=== PATIENT | female | born 1955 | race American Indian/Alaskan Native ===

== ENCOUNTER 2018-09-30 20:58 | Emergency (ER) | payer MEDICAID ==
--- NOTE | 2018-09-30 21:39 | ED PDOC ---
Lower Extremity Pain/Injury Time Seen by Provider: 09/30/18 21:15 Chief Complaint (Nursing): Abnormal Skin Integrity Chief Complaint (Provider): leg pain History Per: Patient History/Exam Limitations: no limitations Onset/Duration Of Symptoms: Days (years) Current Symptoms Are (Timing): Still Present Additional Complaint(s): 63 y/o female presents for evaluation of leg pain/swelling x years. Patient states she used to be treated at the wound care center in [facility] but has not gone "in a while". Patient reports dry, flaking skin. Denies fever, nausea/vomiting, chest pain, shortness of breath, palpitation, numbness/weakness lower extremities. Past Medical History Reviewed: Historical Data, Nursing Documentation, Vital Signs Vital Signs: Last Vital Signs Temp 98.3 F 09/30/18 21:01 Pulse 81 09/30/18 21:01 Resp 16 09/30/18 21:01 BP 180/85 H 09/30/18 21:01 Pulse Ox 98 09/30/18 21:01 - Medical History PMH: No Chronic Diseases - Surgical History Surgical History: No Surg Hx - Family History Family History: States: No Known Family Hx - Living Arrangements Living Arrangements: Alone - Social History Current smoker - smoking cessation education provided: No Alcohol: None Drugs: Denies - Allergies Allergies/Adverse Reactions: Allergies Allergy/AdvReac Type Severity Reaction Status Date / Time No Known Allergies Allergy Verified 09/30/18 21:01 Review of Systems ROS Statement: Except As Marked, All Systems Reviewed And Found Negative Musculoskeletal: Positive for: Leg Pain Physical Exam - Reviewed Nursing Documentation Reviewed: Yes Vital Signs Reviewed: Yes - Physical Exam Appears: Positive for: Well, Non-toxic, No Acute Distress Head Exam: Positive for: ATRAUMATIC, NORMAL INSPECTION, NORMOCEPHALIC Skin: Positive for: Normal Color Eye Exam: Positive for: Normal appearance ENT: Positive for: Normal ENT Inspection Cardiovascular/Chest: Positive for: Regular Rate, Rhythm Respiratory: Positive for: Normal Breath Sounds Pulses-Post. Tibialis (L): 2+ Pulses-Post. Tibialis (R): 2+ Gastrointestinal/Abdominal: Positive for: Normal Exam Back: Positive for: Normal Inspection Extremity: Positive for: Normal ROM, Swelling (2+ pitting edema bilaterally with chronic skin thickening/dryness L>R. Left lower extremity with with skin maceration superior to ankle. No visible ulcerations, purulent drainage noted). Negative for: Pedal Edema, Calf Tenderness Neurologic/Psych: Positive for: Alert, Oriented (x3) - Laboratory Results Result Diagrams: 09/30/18 22:24 09/30/18 22:24 - ECG O2 Sat by Pulse Oximetry: 98 - Progress ED Course And Treament: -cbc -cmp -lactic acid -bilateral lower extremity duplex EXAM: US for Deep Venous Thrombosis, bilateral Lower Extremity. CLINICAL HISTORY: Swelling TECHNIQUE: Real-time ultrasound scan of the veins of the bilateral lower extremity with color Doppler flow, spectral waveform analysis and compression. COMPARISON: None provided. FINDINGS: DEEP VEINS: The common femoral, superficial femoral, and popliteal veins are echolucent and compressible. There is normal color Doppler flow throughout. The visualized calf veins appear patent. SUPERFICIAL VEINS: No thrombosis visualized. SOFT TISSUES: No popliteal fossa cyst or other abnormalities. IMPRESSION: No deep venous thrombosis evident on bilateral lower extremity examination Patient educated on findings, discharged with instructions to follow up outpatient podiatry Advised compression stockings, elevate legs at rest Return precautions given Disposition - Clinical Impression Clinical Impression: Lower extremity edema - Patient ED Disposition Is Patient to be Admitted: No Counseled Patient/Family Regarding: Studies Performed, Diagnosis, Need For Followup - Disposition Referrals: Podiatry Clinic [Outside] Disposition: Routine/Home Disposition Time: 23:49 Condition: IMPROVED Instructions: Dependent Edema (DC)
[2018-09-30 22:28] LABS: BASO % 0.7 % (0.0-2.0); EOS # 0.1 K/uL (0.0-0.7); EOS % 1.9 % (0.0-4.0); HEMOGLOBIN 10.6 g/dL (12.0-16.0); LYMPH # 1.3 K/uL (1.0-4.3); LYMPH % 20.1 % (20.0-40.0); MEAN CELL VOLUME 83.9 fl (81.0-99.0); MEAN CORPUSCULAR HEMOGLOBIN 27.3 pg (27.0-31.0); MEAN CORPUSCULAR HGB CONC 32.5 g/dL (33.0-37.0); MEAN PLATELET VOLUME 8.4 fl (7.2-11.7); MONO # 0.4 K/uL (0.0-0.8); NEUT # 4.8 K/uL (1.8-7.0); NEUT % 71.3 % (50.0-75.0); RBC 3.89 Mil/uL (3.80-5.20); RED CELL DISTRIBUTION WIDTH 16.6 % (11.5-14.5); WHITE BLOOD COUNT 6.7 K/uL (4.8-10.8)
[2018-09-30 22:38] LABS: ALB/GLOB RATIO 0.8 (1.0-2.1); ALBUMIN 3.5 g/dL (3.5-5.0); AST/SGOT 19 U/L (14-36); BLOOD UREA NITROGEN 13 mg/dl (7-17); CALCIUM 9.3 mg/dL (8.4-10.2)
[2018-09-30 22:46] LABS: B-TYPE NATRIURETIC PEPTIDE 30.4 pg/ml (0-900)
[2018-09-30 22:52] LABS: ALT/SGPT < 6 U/L (9-52)
[2018-09-30 23:11] LABS: GFR NON-AFRICAN AMERICAN > 60
[2018-10-01 04:53] VITALS: BP 121/74; PULSE 110; TEMP 99.3; O2SAT 97
[2018-10-01 04:58] VITALS: RESP 18
--- NOTE | 2018-10-01 10:51 | US ---
Date of service: 09/30/2018 PROCEDURE: Bilateral lower extremity venous duplex Doppler. HISTORY: swelling COMPARISON: None available. TECHNIQUE: Bilateral common femoral, superficial femoral, popliteal and posterior tibial veins were evaluated. Flow was assessed with color Doppler, compressibility, assessment of phasic flow and augmentation response. FINDINGS: COMMON FEMORAL VEIN: Right CFV: Unremarkable. Left CFV: Unremarkable. SUPERFICIAL FEMORAL VEIN: Right SFV: Unremarkable. Left SFV: Unremarkable. POPLITEAL VEIN: Right Popliteal: Unremarkable. Left Popliteal: Unremarkable. POSTERIOR TIBIAL VEIN: Right PTV: Unremarkable. Left PTV: Unremarkable. OTHER FINDINGS: None. IMPRESSION: No evidence of deep venous thrombosis. Concordant findings (preliminary report) provided by [facility].
== END 2018-10-01 05:21 | disposition home or self-care (01) ==
LOC: H.ER 20:58
DX: R60.0 Localized edema (principal)

== ENCOUNTER 2018-11-10 13:55 | Emergency (ER) | payer MEDICAID ==
[2018-11-10 13:57] VITALS: BMI 35.1
[2018-11-10 13:58] VITALS: RESP 20; TEMP 98.7; O2SAT 100
[2018-11-10 16:58] LABS: BASO # 0.1 K/uL (0.0-0.2); BASO % 0.5 % (0.0-2.0); EOS # 0.1 K/uL (0.0-0.7); HEMOGLOBIN 11.3 g/dL (12.0-16.0); LYMPH # 1.6 K/uL (1.0-4.3); LYMPH % 16.2 % (20.0-40.0); MEAN CELL VOLUME 84.3 fl (81.0-99.0); MEAN CORPUSCULAR HEMOGLOBIN 27.6 pg (27.0-31.0); MEAN CORPUSCULAR HGB CONC 32.7 g/dL (33.0-37.0); MEAN PLATELET VOLUME 8.4 fl (7.2-11.7); MONO # 0.5 K/uL (0.0-0.8); MONO % 4.8 % (0.0-10.0); NEUT # 7.8 K/uL (1.8-7.0); NEUT % 77.5 % (50.0-75.0); RBC 4.11 Mil/uL (3.80-5.20); RED CELL DISTRIBUTION WIDTH 17.4 % (11.5-14.5)
--- NOTE | 2018-11-10 17:05 | ED PDOC ---
Lower Extremity Pain/Injury Time Seen by Provider: 11/10/18 15:27 Chief Complaint (Nursing): Lower Extremity Problem/Injury Chief Complaint (Provider): Lower extremity pain History Per: Patient History/Exam Limitations: no limitations Additional Complaint(s): 63yo female, comes to ER for evaluation of pain, swelling and foul odor to bilateral lower extremities. Patient has had multiple prior admissions due to bilateral lower extremity ulcers, and is supposed to follow up at [facility] for wound care but has been unable to as she is homeless. Patient states the pain and odor is worse today, prompting the ER visit. Otherwise, no fever, chills, chest pain, or shortness of breath. No additional complaints. PMD: None Past Medical History Reviewed: Historical Data, Nursing Documentation, Vital Signs Vital Signs: Last Vital Signs Temp 98.7 F 11/10/18 13:58 Pulse 101 H 11/10/18 13:58 Resp 20 11/10/18 13:58 BP 156/95 H 11/10/18 13:58 Pulse Ox 100 11/10/18 13:58 - Family History Family History: States: No Known Family Hx - Home Medications Home Medications: Ambulatory Orders Medication Instructions Recorded Amoxicillin/Clavulanate [Augmentin 1 tab PO BID #28 tab 11/10/18 875 MG-125 MG] - Allergies Allergies/Adverse Reactions: Allergies Allergy/AdvReac Type Severity Reaction Status Date / Time No Known Allergies Allergy Verified 09/30/18 21:01 Review of Systems ROS Statement: Except As Marked, All Systems Reviewed And Found Negative Constitutional: Negative for: Fever Cardiovascular: Negative for: Chest Pain Respiratory: Negative for: Shortness of Breath Musculoskeletal: Positive for: Leg Pain Skin: Positive for: Other (ulcers to bilateral legs) Neurological: Negative for: Weakness, Numbness Physical Exam - Reviewed Nursing Documentation Reviewed: Yes Vital Signs Reviewed: Yes - Physical Exam Appears: Positive for: Non-toxic Head Exam: Positive for: ATRAUMATIC, NORMAL INSPECTION, NORMOCEPHALIC Skin: Positive for: Warm Eye Exam: Positive for: EOMI, PERRL Neck: Positive for: Supple Cardiovascular/Chest: Positive for: Regular Rate, Rhythm. Negative for: Tachycardia Respiratory: Positive for: Normal Breath Sounds. Negative for: Wheezing, Respiratory Distress Gastrointestinal/Abdominal: Positive for: Normal Exam, Soft Back: Positive for: Normal Inspection Extremity: Positive for: Other (bilateral lgs from ankle to mid leg with fungating, swollen tissue. left lower leg with open weeping ulcers. wounds covered with multiple layers of tissue paper and unable to visualize base of wound; patient reporting pain with attempting to remove tissue paper. ) Neurological/Psych: Positive for: Awake, Alert, Oriented (x 3) - Laboratory Results Result Diagrams: 11/10/18 16:50 11/10/18 16:50 - ECG O2 Sat by Pulse Oximetry: 100 (RA) Pulse Ox Interpretation: Normal Medical Decision Making Medical Decision Making: Bilateral leg ulcers plan: -- Labs -- XR bilateral foot -- XR bilateral ankle -- Podiatry consult Scribe Attestation: Documented by Cristy Doan acting as a scribe for Ivy Womack MD. Provider Attestation: All medical record entries made by the Scribe were at my direction and personally dictated by me. I have reviewed the chart and agree that the record accurately reflects my personal performance of the history, physical exam, medical decision making, and the department course for this patient. I have also personally directed, reviewed, and agree with the discharge instructions and disposition. Time: 1755 -- Patient seen by podiatry who cleaned and redressed the wounds. Labs demonstrate no elevated WBC. Patient to be discharged with Augmentin and instructions to follow up with the podiatry clinic. Scribe Attestation: Documented by Parker Duval, acting as a scribe Manasa Womack MD. Provider Scribe Attestation: All medical record entries made by the Scribe were at my direction and per sonally dictated by me. I have reviewed the chart and agree that the record accurately reflects my personal performance of the history, physical exam, medical decision making, and the department course for this patient. I have also personally directed, reviewed, and agree with the discharge instructions and disposition. Disposition - Clinical Impression Clinical Impression: Cellulitis, Lymphedema of both lower extremities - Disposition Referrals: Podiatry Clinic [Outside] Disposition Time: 17:56 Condition: IMPROVED Additional Instructions: Take antibiotics as prescribed. Follow up with podiatry clinic as scheduled. Return to the emergency department if symptoms worsen or if new symptoms jeaneth martinez Prescriptions: Amoxicillin/Clavulanate [Augmentin 875 MG-125 MG] 1 tab PO BID #28 tab Instructions: Cellulitis (Skin Infection), Adult (DC), Lowering Your Chance for Lymphedema Forms: [facility] (Vietnamese) Print Language: SCOTTISH
[2018-11-10 17:08] LABS: BLOOD UREA NITROGEN 14 mg/dl (7-17); CALCIUM 9.7 mg/dL (8.4-10.2); GFR NON-AFRICAN AMERICAN > 60
[2018-11-10 17:09] LABS: INR 1.2
[2018-11-10 17:11] LABS: PARTIAL THROMBOPLASTIN TIME 42.2 Seconds (25.6-37.1)
--- NOTE | 2018-11-10 17:55 | RAD ---
Date of service: 11/10/2018 PROCEDURE: Bilateral ankles HISTORY: rule out osteo COMPARISON: None TECHNIQUE: Standard protocol for this study/examination. FINDINGS: Profound soft tissue swelling, edema left lower extremity greater than right. All deep ulcerations identified anteriorly at the level of the distal left tibia and fibula. Less pronounced changes identified mirror image area right lower extremity. IMPRESSION: Negative study for acute osteomyelitis. Profound soft tissue swelling, ulcerations and other manifestations lower extremity cellulitis which appears to be severe.
--- NOTE | 2018-11-10 17:56 | RAD ---
Date of service: 11/10/2018 PROCEDURE: Bilateral Feet Radiographs. HISTORY: rule out osteo COMPARISON: None. FINDINGS: BONES: Right Foot: No evidence of acute osteomyelitis. Moderate size plantar calcaneal spur. Left Foot: No evidence of acute osteomyelitis. Moderate-sized plantar calcaneal spur. JOINTS: Right Foot: Normal. No osteoarthritis. Left Foot: Normal. No osteoarthritis. SOFT TISSUES: Right Foot: Soft tissue findings in the left lower extremity are better visualized on ankle radiographs. Left Foot: Soft tissue findings lower extremity better visualized on ankle radiographs. OTHER FINDINGS: Soft tissue swelling without acute articular or osseous abnormality. IMPRESSION: No radiographic manifestations of acute osteomyelitis.
--- NOTE | 2018-11-10 19:25 | CP.PCM.CON ---
History of Present Illness - History of Present Illness History of Present Illness: Podiatry consult note for attending Dr. Matias: 63 year old female with no past medical history in the ED for b/l LE chronic stasis edema with left leg painful ulceration. Patient states that she started to develop the swelling in her legs 11 year ago. She states that it got worse. She states that she used to follow up with the podiaty clinic at [facility] but she didn't go since August. Patient states that the ulcer in her left leg is painful. She states that the pain is burning pain. Patient denies any other pedal complaint. She denies any recent fevers, nausea, vomiting, cough,and shortness of breath. PMHx: None PSHx: Breast biopsy Allergies: NKDA Social Hx: Denied tobacco, alcohol or illicit drug use. Review of Systems - Review of Systems Review of Systems: As per HPI - Constitutional Constitutional: As Per HPI Past Patient History - Past Social History Smoking Status: Unknown If Ever Smoked - INTEGUMENTARY Hx Cellulitis: Yes - PSYCHIATRIC Hx Substance Use: No Meds Home Medications: Home Medication List Medication Instructions Recorded Confirmed Type Amoxicillin/Clavulanate [Augmentin 1 tab PO BID #28 tab 11/10/18 Rx 875 MG-125 MG] Allergies/Adverse Reactions: Allergies Allergy/AdvReac Type Severity Reaction Status Date / Time No Known Allergies Allergy Verified 09/30/18 21:01 Physical Exam - Constitutional Appears: Non-toxic - Head Exam Head Exam: ATRAUMATIC - Extremities Exam Additional comments: B/L lower extremity focused exam: Vascular: DP/PT are 1/4 b/l due to edema, Cap refill < 3 seconds to all digits, Temp gradient warm to warm from proximal to distal, Massive lymphedema appreciated to b/l extremities left>right. Neuro: Gross sensation intact, protective sensation diminished. Derm: Left: Massive lymphedema noted in the leg with skin changes in the form fissures, cracks and lichnification, Lower 1/3 of the leg shows circumferential ulceration. Wound bed is mixed fibrous granular, positive malodor noted, No purulence, no fluctuance, no probe to bone, no tunneling, no undermining, no tracking noted. Right: Massive lymphedema noted in the leg with skin changes in the form fissures, cracks and lichnification. MSK: Muscle power 5/5 to all groups, Pain noted on palpating the anamaria- ulcerative area on the left side. - Neurological Exam Neurological exam: Alert, Oriented x3 Results - Vital Signs Recent Vital Signs: Last Vital Signs Temp 98.7 F 11/10/18 13:58 Pulse 101 H 11/10/18 13:58 Resp 20 11/10/18 13:58 BP 156/95 H 11/10/18 13:58 Pulse Ox 100 11/10/18 17:58 - Labs Result Diagrams: 11/10/18 16:50 11/10/18 16:50 Labs: Laboratory Results - last 24 hr 11/10/18 11/10/18 11/10/18 16:50 16:50 16:50 WBC 10.0 RBC 4.11 Hgb 11.3 L Hct 34.7 MCV 84.3 MCH 27.6 MCHC 32.7 L RDW 17.4 H Plt Count 311 MPV 8.4 Neut % (Auto) 77.5 H Lymph % (Auto) 16.2 L [place] % (Auto) 4.8 Eos % (Auto) 1.0 Baso % (Auto) 0.5 Neut # (Auto) 7.8 H Lymph # (Auto) 1.6 [place] # (Auto) 0.5 Eos # (Auto) 0.1 Baso # (Auto) 0.1 PT 14.0 H INR 1.2 APTT 42.2 H Sodium 143 Potassium 3.8 Chloride 106 Carbon Dioxide 27 Anion Gap 14 BUN 14 Creatinine 0.8 Est GFR ( Amer) > 60 Est GFR (Non-Af Amer) > 60 Random Glucose 106 H Calcium 9.7 Blood Type Antibody Screen BBK History Checked 11/10/18 16:50 WBC RBC Hgb Hct MCV MCH MCHC RDW Plt Count MPV Neut % (Auto) Lymph % (Auto) [place] % (Auto) Eos % (Auto) Baso % (Auto) Neut # (Auto) Lymph # (Auto) [place] # (Auto) Eos # (Auto) Baso # (Auto) PT INR APTT Sodium Potassium Chloride Carbon Dioxide Anion Gap BUN Creatinine Est GFR ( Amer) Est GFR (Non-Af Amer) Random Glucose Calcium Blood Type A POSITIVE Antibody Screen Negative BBK History Checked No verified bt Assessment & Plan - Assessment and Plan (Free Text) Assessment: 63 year old female with no past medical history in the ED for b/l LE chronic stasis edema with left leg painful ulceration. Plan: Patient seen and evaluated at the ED. Discussed in detail with Dr. Matias Charts, labs and vitals reviewed; Afebrile, WBC 10.0. Wound culture collected and sent to lab. B/L foot 3 views X-ray; No acute findings B/L ankle 2 views X-ray: No accute osseous finding, Massive soft tissue shadow. B/L legs cleaned with Chlorhexidine flush and saline then dressed with xeroform and DSD to the left LE and DSD to the right LE. Patient received stat dose of IV abx in the ED Patient to be discharged from the ED on PO Augmentin prescribed by the ED doctor. Thank you for the consult. PAtient to follow up at [place] wound care center upon discharge from the ED. - Date & Time Date: 11/10/18 Time: 19:12
[2018-11-10 19:40] VITALS: BP 137/93; PULSE 96
== END 2018-11-10 19:30 | disposition home or self-care (01) ==
LOC: H.ER 13:55
DX: I89.0 Lymphedema, not elsewhere classified (principal); L03.116 Cellulitis of left lower limb; L03.115 Cellulitis of right lower limb
CPT/HCPCS: 73610; 73630; 80048; 85025; 85610; 85730; 86850; 86900; 87040; 96374; 99284; J2270

== ENCOUNTER 2018-11-13 16:05 | Emergency (ER) | payer MEDICAID ==
[2018-11-13 16:05] VITALS: BMI 35.1
[2018-11-13 20:16] LABS: BASO # 0.1 K/uL (0.0-0.2); BASO % 0.8 % (0.0-2.0); EOS # 0.1 K/uL (0.0-0.7); EOS % 1.1 % (0.0-4.0); HEMOGLOBIN 11.4 g/dL (12.0-16.0); LYMPH # 1.4 K/uL (1.0-4.3); LYMPH % 18.1 % (20.0-40.0); MEAN CELL VOLUME 83.7 fl (81.0-99.0); MEAN CORPUSCULAR HEMOGLOBIN 27.3 pg (27.0-31.0); MEAN CORPUSCULAR HGB CONC 32.6 g/dL (33.0-37.0); MEAN PLATELET VOLUME 8.1 fl (7.2-11.7); MONO # 0.3 K/uL (0.0-0.8); MONO % 4.6 % (0.0-10.0); NEUT # 5.7 K/uL (1.8-7.0); NEUT % 75.4 % (50.0-75.0); RBC 4.18 Mil/uL (3.80-5.20); RED CELL DISTRIBUTION WIDTH 17.1 % (11.5-14.5); WHITE BLOOD COUNT 7.5 K/uL (4.8-10.8)
[2018-11-13 20:24] LABS: BLOOD UREA NITROGEN 16 mg/dl (7-17); CALCIUM 9.6 mg/dL (8.4-10.2); GFR NON-AFRICAN AMERICAN > 60
--- NOTE | 2018-11-13 20:45 | ED PDOC ---
Lower Extremity Pain/Injury Time Seen by Provider: 11/13/18 16:33 Chief Complaint (Nursing): Lower Extremity Problem/Injury Chief Complaint (Provider): Lower Extremity Problem/Injury History Per: Patient History/Exam Limitations: no limitations Onset/Duration Of Symptoms: Days Current Symptoms Are (Timing): Still Present Additional Complaint(s): 63 year old female with a past medical history of chronic venous stasis and chronic lower extremity ulcers who is homeless and is presenting to the ED for evaluation of worsening lower extremity wound drainage and pain. She was last seen in this ED for similar complaints on 11/10 and was evaluated by podiatry. They redressed wounds and gave her a dose of IV antibiotics and also provided her with a prescription for PO Augmentin. Patient was scheduled to follow up in [place] podiatry clinic but she states that she has no money and cant afford it or PO meds. She admits that people in her nursing home have been complaining of odor coming from her legs and she reports that drainage has increased since she was last evaluated. Patient does admit that the pain is better and denies any fevers or chills. PMD: none provided Past Medical History Reviewed: Historical Data, Nursing Documentation, Vital Signs Vital Signs: Last Vital Signs Temp 98.2 F 11/13/18 16:08 Pulse 88 11/13/18 16:08 Resp 18 11/13/18 16:08 BP 149/78 11/13/18 16:08 Pulse Ox 100 11/13/18 16:08 - Medical History Other PMH: venous stasis - Surgical History Surgical History: No Surg Hx - Family History Family History: States: Unknown Family Hx - Social History Current smoker - smoking cessation education provided: No Alcohol: None Drugs: Denies - Home Medications Home Medications: Ambulatory Orders Medication Instructions Recorded Amoxicillin/Clavulanate [Augmentin 1 tab PO BID #28 tab 11/10/18 875 MG-125 MG] Amoxicillin/Clavulanate [Augmentin 1 tab PO BID #28 tab 11/13/18 875 MG-125 MG] - Allergies Allergies/Adverse Reactions: Allergies Allergy/AdvReac Type Severity Reaction Status Date / Time No Known Allergies Allergy Verified 09/30/18 21:01 Review of Systems ROS Statement: Except As Marked, All Systems Reviewed And Found Negative Constitutional: Negative for: Fever, Chills Musculoskeletal: Positive for: Other (extrmity ulcers with drainage ) Physical Exam - Reviewed Nursing Documentation Reviewed: Yes Vital Signs Reviewed: Yes - Physical Exam Appears: Positive for: Non-toxic, No Acute Distress Head Exam: Positive for: ATRAUMATIC, NORMAL INSPECTION, NORMOCEPHALIC Extremity: Positive for: Other (bilateral lower extremities: lymphemia, chronic venous stasis changes, weeping wounds to posterior left lower leg with ? pur ulent drainage. mild associated erythema ) Neurological/Psych: Positive for: Awake, Alert, Oriented. Negative for: Motor/Sensory Deficits - Laboratory Results Result Diagrams: 11/13/18 20:00 11/13/18 20:00 - ECG O2 Sat by Pulse Oximetry: 100 (RA) Pulse Ox Interpretation: Normal Medical Decision Making Medical Decision Making: Time: 20:00 Plan: --BMP --Podiatry Consult --CBC --Blood Culture --Wound Culture Seen by podiatry. Wounds are unchanged from previous visit 2 days ago. Labs are wnl. Patient to be discharged with same antibiotic prescription and follow up in [facility] clinic as well as wound clinic. Per patient, arrangements can be made by nursing home for transportation to wound clinic. See Podiatry note for full recommendations. Scribe Attestation: Documented by Cary De Oliveira, acting as a scribe for Cristina Larry PA-C. Provider Scribe Attestation: All medical record entries made by the Scribe were at my direction and personally dictated by me. I have reviewed the chart and agree that the record accurately reflects my personal performance of the history, physical exam, medical decision making, and the department course for this patient. I have also personally directed, reviewed, and agree with the discharge instructions and disposition. Disposition - Clinical Impression Clinical Impression: Lymphedema of both lower extremities - Patient ED Disposition Is Patient to be Admitted: No Counseled Patient/Family Regarding: Diagnosis, Need For Followup, Rx Given - Disposition Referrals: [facility] [Outside] [facility] [place] [Outside] Disposition: Routine/Home Disposition Time: 21:50 Condition: STABLE Additional Instructions: Follow up with your primary care doctor for assistance with obtaining antibiotic prescription. Take antibiotic as prescribed. Follow up in wound care clinic for dressing changes. Change dressing daily (use paper towels if needed as per Podiatry resident). Return to ER if you develop fevers. Prescriptions: Amoxicillin/Clavulanate [Augmentin 875 MG-125 MG] 1 tab PO BID #28 tab Instructions: Lymphedema (DC) Forms: [employer] (Sami) Print Language: MONGOLIAN
[2018-11-13 22:16] VITALS: BP 144/82; PULSE 84; RESP 16; TEMP 98
--- NOTE | 2018-11-13 22:59 | CP.PCM.CON ---
History of Present Illness - History of Present Illness History of Present Illness: Podiatry Consult- Dr. Matias: 63 year old female with no PMH seen and evaluated in the ED for bilateral LE chronic stasis edema with left leg painful ulceration. Patient reports lower extremity problems has been going on for about 11 years. Was seen regulary by a wound center at [facility] when she was living around that area. Reports moved out and is currently in [place] and unable to follow up regularly. Patient reports that she was in the ED for the same problem a few days ago and was cleansed and dressing was placed. She was told to follow up in [facility] in wound care. Patient reports that she has kept the same dressing on since her visitation to the ED. Reports that in the residential, the people living there could not stand the smells on her legs and told her to go back to the ED. Patient reports no changes since the last time she came to the ED. Reports lower extremity condition has been the same. Does not notice increase swelling or drainage. Patient reports was not able to get the medications prescribed since the ED. Patient denies nausea, fever, shortness of breath, chest pains or chills. PMHx: None PSHx: Breast biopsy Allergies: NKDA Social Hx: Homeless, lives in residential, denies tobacco, alcohol or illicit drug use. Past Patient History - Past Social History Alcohol: None Drugs: Denies - INTEGUMENTARY Hx Cellulitis: Yes Other/Comment: chronic venous stasis bilateral lower extremities - PSYCHIATRIC Hx Substance Use: No Meds Home Medications: Home Medication List Medication Instructions Recorded Confirmed Type Amoxicillin/Clavulanate [Augmentin 1 tab PO BID #28 tab 11/13/18 Rx 875 MG-125 MG] Allergies/Adverse Reactions: Allergies Allergy/AdvReac Type Severity Reaction Status Date / Time No Known Allergies Allergy Verified 09/30/18 21:01 Physical Exam - Constitutional Appears: Well, Non-toxic, No Acute Distress - Extremities Exam Extremities exam: Negative for: calf tenderness Additional comments: B/L lower extremity focused exam: Vascular: DP/PT are 1/4 b/l due to edema, Cap refill < 3 seconds to all digits, Temp gradient warm to warm from proximal to distal, massive lymphedema appreciated to b/l extremities left>right. Neuro: Gross sensation intact, protective sensation diminished. Derm: Left: Massive lymphedema noted in the leg with skin changes in the form fissures, cracks and lichnification, Lower 1/3 of the leg shows circumferential ulceration. Wound bed is mixed fibrous granular, positive malodor noted, no purulence, no fluctuance, no probe to bone, no tunneling, no undermining, no tracking noted. Right: Massive lymphedema noted in the leg with skin changes in the form fissures, cracks and lichnification. MSK: Muscle power 5/5 to all groups, Pain noted on palpating the anamaria- ulcerative area on the left side. - Neurological Exam Neurological exam: Alert, Normal Gait - Psychiatric Exam Psychiatric exam: Normal Affect, Normal Mood Results - Vital Signs Recent Vital Signs: Last Vital Signs Temp 98.0 F 11/13/18 21:50 Pulse 84 11/13/18 21:50 Resp 16 11/13/18 21:50 BP 144/82 11/13/18 21:50 Pulse Ox 99 11/13/18 21:50 - Labs Result Diagrams: 11/13/18 20:00 11/13/18 20:00 Labs: Laboratory Results - last 24 hr 11/13/18 11/13/18 20:00 20:00 WBC 7.5 RBC 4.18 Hgb 11.4 L Hct 35.0 MCV 83.7 MCH 27.3 MCHC 32.6 L RDW 17.1 H Plt Count 337 MPV 8.1 Neut % (Auto) 75.4 H Lymph % (Auto) 18.1 L Loup % (Auto) 4.6 Eos % (Auto) 1.1 Baso % (Auto) 0.8 Neut # (Auto) 5.7 Lymph # (Auto) 1.4 Loup # (Auto) 0.3 Eos # (Auto) 0.1 Baso # (Auto) 0.1 Sodium 144 Potassium 4.0 Chloride 107 Carbon Dioxide 29 Anion Gap 12 BUN 16 Creatinine 0.8 Est GFR ( Amer) > 60 Est GFR (Non-Af Amer) > 60 Random Glucose 107 H Calcium 9.6 Assessment & Plan - Assessment and Plan (Free Text) Assessment: 63 year old female with no past medical history in the ED for b/l LE chronic stasis edema with left leg painful ulceration. Plan: Patient seen and evaluated at the ED. Alll questions/concerns addressed. Discussed plan in detail with attending Dr. Matias Charts, labs and vitals reviewed; Afebrile, absent leukocytosis B/L foot 3 views X-ray; No acute findings B/L ankle 2 views X-ray: No accute osseous finding, Massive soft tissue shadow. B/L legs cleaned with Chlorhexidine flush and saline then dressed with DSD, ABD, kerlix and HILDA Gave patient additional dressing changes supplies until able to go to [place] within 1 week Advised patient to wash LE daily with soap and water. Pat dry and to change dressing daily. Patient to fill Rx given in the last visitation and take as prescribed Patient does not have a primary currently. Told patient to establish a primary care. Instructed to call [facility] for appointment Patient to return to ED with worsening symptoms/signs as educated. Patient understands
[2018-11-13 23:54] VITALS: O2SAT 100
== END 2018-11-13 22:04 | disposition home or self-care (01) ==
LOC: H.ER 16:05
DX: I89.0 Lymphedema, not elsewhere classified (principal); Z59.0 Homelessness